=== PATIENT | male | born 1955 | race African-American/Black ===

== ENCOUNTER → 2018-05-25 | Outpatient (CLI) | payer OTHER ==
--- NOTE | 2018-05-25 18:01 | XCELERA REPORT ---
[address] [address] Transthoracic Echocardiogram Report Name: ROB CLAYTON Age: 62 yrs Gender: Male : 1955 Patient Status: Outpatient Patient Location: Study Date: 05/25/2018 08:51 AM Height: 72 in Weight: 224 lb BSA: 2.2 m2 Reason For Study: CARDIAC ARRHYTHMIA, HTN Ordering Physician: CAMILLE JUNIOR Performed By: Manisha Escobar Interpretation Summary Technically poor study due to 224# and 6'0". Poor A2 chamber visualisation. No biplane LVEF done no LISA measured. No signif post. pericardial effusion Aortic root calcified, not enlarged. AV 3 cusps, moderate calcified with RCC fixed, and the other 2 cusps mobile. Mild calcific , PPG 18, MPG 9. with no AR seen Mild Mitral annular calcification, no MS, no MVP, no MR. no LA enlargement. No LVH, normal LVEF <60%, no LV diastolic dysfunction. Incomplete segmental analysis, no LV enlargement. Inferoposterior hypokinesis. RH poorly visualised. poor TR captured, unable to r/o pulm hypertension. Trace TR. MMode/2D Measurements & Calculations RVDd: 4.0 cm LVIDd: 5.3 cm FS: 32.6 % Ao root diam: 2.9 cm IVSd: 1.0 cm LVIDs: 3.6 cm EDV(Teich): 136.2 ml LVPWd: 1.0 cm ESV(Teich): 53.9 ml Ao root area: 6.5 cm2 LA dimension: 4.1 cm EF(Teich): 60.4 % Doppler Measurements & Calculations MV E max lucio: MV dec time: Ao V2 max: LV V1 max P.5 cm/sec 0.14 sec 204.6 cm/sec 2.6 mmHg MV A max lucio: Ao max P.8 mmHg LV V1 mean P.0 cm/sec Ao V2 mean: 1.4 mmHg MV E/A: 1.0 143.9 cm/sec LV V1 max: Ao mean P.3 mmHg 80.2 cm/sec Ao V2 VTI: 41.0 cm LV V1 mean: 55.7 cm/sec LV V1 VTI: 15.1 cm PA V2 max: 69.1 cm/sec PA max P.9 mmHg Left Ventricle The left ventricle is grossly normal size. There is normal left ventricular wall thickness. The left ventricular ejection fraction is normal. Doppler measurements suggest normal left ventricular diastolic function. Not all wall segments were well visualized. There is inferior wall mild hypokinesis. There is posterior wall mild hypokinesis. The left ventricular apex is not well visualized. Right Ventricle The right ventricle is not well visualized secondary to technical limitations. Atria Right atrium not well visualized secondary to technical limitations. The left atrium is borderline dilated. The interatrial septum is intact with no evidence for an atrial septal defect. Mitral Valve There is mild mitral annular calcification. There is no evidence of mitral valve prolapse. There is no mitral valve stenosis. There is no mitral regurgitation noted. Aortic Valve The aortic valve is trileaflet. The aortic valve is calcified. There is no aortic valvular vegetation. There is mild aortic stenosis. No aortic regurgitation is present. Tricuspid Valve The tricuspid valve is not well visualized secondary to technical limitations. Pulmonic Valve The pulmonic valve is not well visualized. There is a trace or physiologic amount of pulmonic regurgitation. Great Vessels The aortic root is normal size. Effusions There is no pericardial effusion. I WMSI = 1.25 % Normal = 75 Segments Size X - Cannot 1 - Normal 2 - 3 - Akinetic4 - 1-2 small Interpret Hypokinetic Dyskinetic 3-5 moderate 5 - 6-14 large Aneurysmal 15-16 diffuse : CAMILLE JUNIOR > John Estevez
== END ==
LOC: SP 08:37
PROVIDERS: ATTEND Family Medicine
DX: I49.9 Cardiac arrhythmia, unspecified (principal); I10 Essential (primary) hypertension; R06.02 Shortness of breath
CPT/HCPCS: 93306